=== PATIENT | male | born 1995 ===

== ENCOUNTER 2017-06-07 21:18 | Emergency (ER) | payer OTHER ==
[2017-06-07 21:35] VITALS: BP 130/83; PULSE 54; RESP 16; TEMP 98.1; O2SAT 98
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
== END 2017-06-07 23:51 | disposition home or self-care (01) ==
LOC: H.ER 21:18
DX: S09.90XA Unspecified injury of head, initial encounter (principal); V49.40XA Driver injured in collision with unspecified motor vehicles in traffic accident, initial encounter